=== PATIENT | male | born 1935 | race Caucasian/White ===

== ENCOUNTER 2017-04-17 08:07 | Day surgery (SDC) | payer OTHER, BC ==
[2017-04-13 11:09] VITALS: BMI 23.4
[2017-04-17] MEDS ORDERED: PROPOFOL 20 ML ONE ×2 (08:32)
[2017-04-17] MEDS ORDERED: LIDOCAINE HCL/PF 2% SDV 5ML VIAL ONE (08:32)
[2017-04-17 13:18] VITALS: TEMP 97.8
[2017-04-17 13:29] VITALS: BP 134/75; PULSE 71
--- NOTE | 2017-04-18 15:05 | PATH ---
Surgical Pathology Report Patient Name: JULIANNA MONAE [facility]. Rec. #: [id number] /Age/Gender: 1935 (Age: 81) / M Account: [id number] Location: [facility]-ENDOSCOPY Taken: 04/17/2017 Received: 04/17/2017 Reported: 04/18/2017 Physicians: Chente Lan M.D. Specimen(s) Received BX LEFT COLON Clinical History Preoperative diagnosis: Family history of colonic polyps Postoperative diagnosis: Polyp Final Diagnosis LEFT COLON, BIOPSY: COLONIC MUCOSA SHOWING BENIGN/REACTIVE LYMPHOID AGGREGATE. Electronically Signed Mona Wahl M.D. Gross Description Received in formalin, labeled "left colon" are 2 garcia, irregular portions of soft tissue measuring 0.4 and 0.5 cm. in greatest dimension. The specimens are submitted in toto in one cassette. 04/17/201704/17/2017
== END 2017-04-17 11:00 | disposition home or self-care (01) ==
LOC: FASU-ENDO 08:07
PROVIDERS: ATTEND Internal Medicine Gastroenterology
PROC: 0DBM8ZX Excision of Descending Colon, Via Natural or Artificial Opening Endoscopic, Diagnostic (ICD-10-PCS; principal; 2017-04-17 09:38)
DX: Z83.71 Family history of colonic polyps (principal); D12.4 Benign neoplasm of descending colon
CPT/HCPCS: 88305-TC

== ENCOUNTER 2023-09-14 18:12 | Emergency (ER) | payer OTHER, BC ==
[2023-09-14 18:26] VITALS: BP 155/73; PULSE 87; RESP 18; TEMP 98.6; BMI 22.8
== END 2023-09-14 19:00 | disposition home or self-care (01) ==
LOC: FER 18:12
DX: N32.89 Other specified disorders of bladder (principal)
CPT/HCPCS: 81003; 87086; 99283-25

== ENCOUNTER 2024-11-15 14:46 | Emergency (ER) | payer OTHER, BC ==
[2024-11-15 15:07] VITALS: BP 120/68; PULSE 85; RESP 18; TEMP 97.6; BMI 24.7
[2024-11-15 15:49] LABS: ABSOLUTE IMMATURE GRANULOCYTES 0.01 x10^3/uL (0.0-0.031); BASOPHILS # 0.03 x10^3/uL (0.01-0.08); EOSINOPHIL % 2.0 % (0.8-7.0); EOSINOPHILS # 0.09 x10^3/uL (0.04-0.54); MCHC 33.2 g/dl (32.3-36.5); MEAN CELL VOLUME 87.2 fl (79.0-92.2); MEAN PLT VOLUME 12.1 fl (9.4-12.4); MONOCYTE # 0.40 x10^3/uL (0.30-0.82); MONOCYTE % 8.7 % (5.3-12.2); RDW 12.7 % (12.6-16.6)
[2024-11-15] MEDS: POLYETHYLENE GLYCOL (HEALTHYLAX) 3350 17 GM PACKET PO ONE (16:03)
[2024-11-15 16:12] LABS: ALK PHOS 77.0 U/L (45-117); CO2 25.0 mmol/L (21-32); CREATININE 1.3 mg/dl (0.6-1.3); GLUCOSE,RANDOM 165.0 mg/dl (74-106); SGOT/AST 16.0 U/L (15-37); SGPT/ALT 13.0 U/L (7-52); TOT PROT 7.1 g/dl (6.4-8.2)
[2024-11-15 17:03] LABS: INR 1.02 (0.83-1.09); PROTHROMBIN TIME (PATIENT) 11.3 SEC (9.7-13.0)
[2024-11-15 17:05] LABS: ACTIVATED PTT 26.7 SECONDS (25.2-36.5)
== END 2024-11-15 17:18 | disposition home or self-care (01) ==
LOC: FER 14:46
DX: K59.00 Constipation, unspecified (principal)
CPT/HCPCS: 36415; 74177-TC; 80053; 85025; 85610; 85730; 86850; 86900; 86901; 99285-25; Q9967